=== PATIENT | male | born 1965 | race Caucasian/White ===

== ENCOUNTER 2017-05-17 09:55 | Day surgery (SDC) | payer OTHER ==
[~2017-05-17 09:55] MED LIST: HYDROmorphone 2 MG/ML VIAL IV; LIDOCAINE 1% PF 2 ML VIAL. ID; MORPHINE SULFATE 2 MG/ML DISP.SYRIN. IV; ONDANSETRON PF 4 MG/2 ML VIAL. IV; PROCHLORPERAZINE 10 MG/2 ML VIAL. IV; fentaNYL PF VIAL 100 MCG/2 ML VIAL IV
[2017-05-17] MEDS: IV RINGERS,LACTATED 1000ML 1,000 ML IV ×2 (10:38)
[2017-05-17] MEDS ORDERED: fentaNYL PF VIAL 100 MCG/2 ML VIAL ×2 (12:47)
[2017-05-17] MEDS ORDERED: DEXAMETHASONE SOD PHOS 20 MG/5 ML VIAL. ×2 (12:47)
[2017-05-17] MEDS ORDERED: ONDANSETRON PF 4 MG/2 ML VIAL. ×2 (12:47)
[2017-05-17] MEDS ORDERED: MIDAZOLAM HCL/PF 2 MG/2 ML VIAL. ×2 (12:47)
[2017-05-17] MEDS ORDERED: FAMOTIDINE 20 MG/2 ML VIAL ×2 (12:47)
[2017-05-17] MEDS ORDERED: PROPOFOL 20 ML IV ×2 (12:47)
[2017-05-17] MEDS ORDERED: EPINEPHrine 1 MG/ML VIAL ×2 (12:58)
[2017-05-17] MEDS ORDERED: BUPIVACAINE 0.5% 50 ML VIAL. ×2 (12:58)
[2017-05-17] MEDS: LIDOCAINE 1% PF 30 ML VIAL. ×2 (14:27)
[2017-05-17] MEDS: BUPIVACAINE MPF 0.5% 30 ML VIAL. ×2 (14:27)
[2017-05-17] MEDS: EPINEPHrine VIAL 30 MG/30 ML VIAL ×2 (14:27)
[2017-05-17] MEDS ORDERED: NEOSTIGMINE METHYLSULFATE 5 MG/5 ML SYRINGE. ×2 (15:18)
[2017-05-17] MEDS ORDERED: GLYCOPYRROLATE 1 MG/5 ML VIAL. ×2 (15:18)
[2017-05-17] MEDS ORDERED: SEVOFLURANE 61 TO 120 MINUTES. IH ×2 (15:33)
[2017-05-17] MEDS ORDERED: oxyCODONE/APAP 5/325 1 TAB TABLET PO ×2 (16:15)
[2017-05-17 21:10] LABS: MRSA BY PCR Negative (Negative)
== END 2017-05-17 17:09 | disposition home or self-care (01) ==
LOC: SURG 09:55
DX: S43.491A Other sprain of right shoulder joint, initial encounter (principal); X58.XXXA Exposure to other specified factors, initial encounter; Y93.89 Activity, other specified; Y92.89 Other specified places as the place of occurrence of the external cause; Y99.8 Other external cause status; Z87.39 Personal history of other diseases of the musculoskeletal system and connective tissue; Z86.14 Personal history of Methicillin resistant Staphylococcus aureus infection
CPT/HCPCS: 29807; 36415; 87641; C1713; C1782; C1876; J0171; J0690; J1100; J2250; J2405; J2704; J2710; J3010; J3490; J7120; S0028